=== PATIENT | female | born 1980 | race Caucasian/White ===

== ENCOUNTER → 2024-05-27 11:42 | Outpatient (REF) | payer MEDICARE, SELFPAY ==
[2024-05-27 15:53] LABS: % Basophils 0.6 % (0-2); % Eosinophils 1.8 % (0-6); % Immature Granulocytes 0.3 % (0-0.5); % Lymphocytes 30.8 % (20.5-51.1); % Monocytes 7.6 % (1.7-9.3); % Neutrophils 58.9 % (42.2-75.2); Absolute Basophils 0.1 10^3/uL (0-0.2); Absolute Eosinophils 0.1 10^3/uL (0-0.7); Absolute Lymphocytes 2.5 10^3/uL (1.2-3.4); Absolute Monocytes 0.6 10^3/uL (0.1-0.6); Absolute Neutrophils 4.7 10^3/uL (1.4-6.5); Hematocrit 37.4 % (37.0-47.0); Hemoglobin 12.6 g/dL (12.0-16.0); Mean Corp Hgb Conc. 33.7 g/dL (33.0-37.0); Mean Corpuscular Hgb 29.9 pg (27.0-31.0); Mean Corpuscular Volume 88.6 fL (81.0-99.0); Mean Platelet Volume 11.3 fL (7.4-10.4); Nucleated Red Blood Cells % 0 %; Platelet Count 258 10^3/uL (130-400); Red Blood Cell Count 4.22 10^6/uL (4.20-5.40); Red Cell Dist. Width 13.4 % (11.5-14.5)
[2024-05-27 16:06] LABS: ALT (SGPT) 30 U/L (0-35); AST (SGOT) 43 U/L (14-36); Albumin 4.9 g/dl (3.5-5.0); Alkaline Phosphatase 69 U/L (38-126); Blood Urea Nitrogen 16 mg/dl (7-17); Calcium 10.1 mg/dl (8.4-10.2); Carbon Dioxide 26 mmol/L (22-30); Chloride 101 mmol/L (98-107); Glucose 101 mg/dl (70-99); Potassium 4.8 mmol/L (3.5-5.1); Sodium 142 mmol/L (135-145); Total Bilirubin 0.3 mg/dl (0.2-1.3); Total Protein 7.7 g/dl (6.3-8.2); eGFR > 60.00
[2024-05-27 16:34] LABS: TSH 1.03 uIU/ml (0.47-4.68)
== END ==
LOC: HWLAB 11:42
PROVIDERS: ATTENDING PHYSICIAN Psychiatry & Neurology Forensic Psychiatry
DX: F31.9 Bipolar disorder, unspecified (principal); Z79.899 Other long term (current) drug therapy
CPT/HCPCS: 36415; 80053; 82306; 84443; 85025

== ENCOUNTER → 2024-06-28 14:29 | Outpatient (REF) | payer MEDICARE, SELFPAY ==
[2024-06-28 15:25] LABS: ALT (SGPT) 17 U/L (0-35); AST (SGOT) 26 U/L (14-36); Albumin 4.8 g/dl (3.5-5.0); Alkaline Phosphatase 51 U/L (38-126); Total Bilirubin 0.2 mg/dl (0.2-1.3); Total Protein 7.4 g/dl (6.3-8.2)
== END ==
LOC: REG 14:29
PROVIDERS: ATTENDING PHYSICIAN Psychiatry & Neurology Forensic Psychiatry
DX: Z79.899 Other long term (current) drug therapy (principal)
CPT/HCPCS: 36415; 80076